=== PATIENT | male | born 1995 | race Caucasian/White ===

== ENCOUNTER 2017-08-22 12:03 | Emergency (ER) | payer BC ==
[~2017-08-22] VITALS: Ht 167.6 cm; Wt 64.9 kg
[2017-08-22] MEDS ORDERED: BACI3.5O8 OS (12:50)
--- NOTE | 2017-08-22 12:50 | PHYS DOC ---
Past History Past Medical History: No Pertinent History Past Surgical History: Appendectomy, Other Smoking: Non-smoker Alcohol Use: None Drug Use: None Adult General Chief Complaint Chief Complaint: LACERATION/AVULSION HPI HPI he is a pleasant 22-year-old male who is moving a aquarium that his medical last 4 or reptiles at his home when he actually pushed it too hard and the plate glass broke. This caused small injuries to both of his hands bilaterally and small laceration to the lateral aspect of his left wrist that will need to be repaired. Patient denies any foreign body sensation, denies any numbness in his hands or weakness. This patient has had a tetanus shot within the last 10 years he denies any intent to hurt himself or anybody else. Patient controlled the bleeding with direct pressure there is no active bleeding or foreign body sensation on inspection of his hands. Review of Systems Review of Systems Constitutional: Denies fever or chills [] Musculoskeletal: Denies back pain or joint pain [] Integument: Denies rash or skin lesions [] Neurologic: Denies headache, focal weakness or sensory changes [] All other systems were reviewed and found to be within normal limits, except as documented in this note. Allergies Allergies Allergies Coded Allergies Type Severity Reaction Last Updated Verified No Known Drug Allergies 08/22/17 No Physical Exam Physical Exam Of the vital signs on the chart within normal limits Constitutional: Well developed, well nourished, no acute distress, non-toxic appearance. [] Cardiovascular:Heart rate regular rhythm, no murmur [] Lungs & Thorax: Bilateral breath sounds clear to auscultation [] Skin: Warm, dry, no erythema, no rash. [] Extremities: he has a small flap-like laceration measuring 1.2 cm and a somewhat elliptical injury to the ER aspect of his left wrist over the distal ulna. Is no joint involvement. Patient's bleeding is well-controlled direct pressure patient has normal sensation to light touch of her perception distal to the wound with no obvious signs of foreign body visualized the floor the wound., Patient is a small avulsion injury on the volar surface of the right forearm measuring less than 0.5 cm it is thin with likely no foreign bodies sensation no active bleeding at this time. She has small linear lacerations measuring less than 3 mm on the dorsum of the hand on the right over the ring finger and the pinky. ROM intact, no edema. [] Neurologic: Alert and oriented X 3, normal motor function, normal sensory function, no focal deficits noted. [] Psychologic: Affect normal, judgement normal, mood normal. [] EKG EKG [] Radiology/Procedures Radiology/Procedures [] Course & Med Decision Making Course & Med Decision Making Pertinent Labs and Imaging studies reviewed. (See chart for details) []he is a pleasant 22-year-old male who presents with multiple injuries to his hands bilaterally after fracturing the glass aquarium 4 a reptile although there is only one wound that really needs repair which will be described in the procedure note all of them been dressed appropriately explored for foreign bodies active bleeding was not noted in any wound. After verbal consent and procedural evaluation and explanation provided to patient I corrected an open wound The only wound that required injury repair was the 1.2 cm laceration over the distal ulna on the left. Patient had 3 mL of 1% lidocaine introduced to the wound edges. To facilitate exploration and cleaning. Using Betadine and a manual scrubbing I cleaned the wound edges and inside the wound visualized the floor which demonstrated no foreign body and no active bleeding. Patient had 6 interrupted sutures placed in rapid succession using a 4-0 Ethilon suture without complications. No active bleeding was noted minimal blood loss was visualized. Patient tolerated the procedure well without complications patient had his wounds dressed with bacitracin ointment and wound care instructions. Impression: Hand lacerations discharge: I've spoken with the patient and/or caregivers. I've explained the patient's condition, diagnosis and treatment plan based on information available to me at this time. I've answered the patient's and/or caregivers questions and addressed any concerns. The patient and/or caregivers have a good understanding the patient's diagnosis, condition and treatment plan as can be expected at this point. Vital signs have been stabilized. The patient's condition is stable for discharge from the emergency department. The patient will pursue further outpatient evaluation with her primary care provider or other designated consulting physician as outlined in the discharge instructions. Patient and/or caregivers are agreeable to this plan of care and follow-up instructions have been explained in detail. The patient and/or caregivers have received these instructions in written format and expressed understanding of these discharge instructions. The patient and her caregivers are aware that if any significant change in condition or worsening of symptoms should prompt him to immediately return to this of the closest emergency department. If an emergent department is not readily available I would encourage him to call 911. Latonya Disclaimer Latonya Disclaimer This electronic medical record was generated, in whole or in part, using a voice recognition dictation system. Departure Departure: Impression: Primary Impression: Hand laceration Additional Impression: Laceration of wrist without complication Disposition: 01 HOME, SELF-CARE Condition: STABLE Referrals: BLAZE HAILE MD (PCP) Patient Instructions: Laceration Care, Adult, Sutured Wound Care Additional Instructions: discharge: I've spoken with the patient and/or caregivers. I've explained the patient's condition, diagnosis and treatment plan based on information available to me at this time. I've answered the patient's and/or caregivers questions and addressed any concerns. The patient and/or caregivers have a good understanding the patient's diagnosis, condition and treatment plan as can be expected at this point. Vital signs have been stabilized. The patient's condition is stable for discharge from the emergency department. The patient will pursue further outpatient evaluation with her primary care provider or other designated consulting physician as outlined in the discharge instructions. Patient and/or caregivers are agreeable to this plan of care and follow-up instructions have been explained in detail. The patient and/or caregivers have received these instructions in written format and expressed understanding of these discharge instructions. The patient and her caregivers are aware that if any significant change in condition or worsening of symptoms should prompt him to immediately return to this of the closest emergency department. If an emergent department is not readily available I would encourage him to call 911. Return in 10-14 days for suture removal to primary care doctor's office Scripts Bacitracin (BACITRACIN) 3.5 Gm Oint...g. 1 KAILEY OS TID, #3.5 GM Prov: RADHA TONG MD 08/22/17 Problem Qualifiers RADHA TONG MD Aug 22, 2017 12:50
[2017-08-22 13:35] VITALS: BP 105/40
== END 2017-08-22 13:35 | disposition home or self-care (01) ==
LOC: ER 12:03
DX: S61.512A Laceration without foreign body of left wrist, initial encounter (principal); S51.811A Laceration without foreign body of right forearm, initial encounter; W25.XXXA Contact with sharp glass, initial encounter; Y93.89 Activity, other specified; Y99.8 Other external cause status; Y92.89 Other specified places as the place of occurrence of the external cause
CPT/HCPCS: 12001; 99283

== ENCOUNTER 2017-09-02 14:52 | Emergency (ER) | payer BC ==
[~2017-09-02] VITALS: Ht 167.6 cm; Wt 65.0 kg
[~2017-09-02 14:52] MED LIST: BACI3.5O8 OS
[2017-09-02 15:15] VITALS: BP 111/54
--- NOTE | 2017-09-02 15:42 | PHYS DOC ---
Past History Past Medical History: No Pertinent History Past Surgical History: Appendectomy, Other Smoking: Non-smoker Alcohol Use: None Drug Use: None Adult General Chief Complaint Chief Complaint: SUTURE/STAPLE REMOVAL [facility] 22-year-old male patient had suture placement in left use an EpiPen night and presented for removal of stitches. Patient did not have any complaint. Patient is not up-to-date with tetanus immunization but refused to have tetanus immunization. Review of Systems Review of Systems Constitutional: Denies fever or chills [] Eyes: Denies change in visual acuity, redness, or eye pain [] HENT: Denies nasal congestion or sore throat [] Respiratory: Denies cough or shortness of breath [] Cardiovascular: No additional information not addressed in HPI [] GI: Denies abdominal pain, nausea, vomiting, bloody stools or diarrhea [] : Denies dysuria or hematuria [] Musculoskeletal: Denies back pain or joint pain [] Integument: Denies rash or skin lesions [] Neurologic: Denies headache, focal weakness or sensory changes [] Endocrine: Denies polyuria or polydipsia [] All other systems were reviewed and found to be within normal limits, except as documented in this note. Current Medications Current Medications Current Medications Medications (Trade) Dose Ordered Sig/Edilma Start Time Stop Time Status Last Admin Dose Admin Diphtheria/ Tetanus/Acell Pertussis (Boostrix) 0.5 ml ONCE ONCE 09/02/17 16:00 09/02/17 16:01 Allergies Allergies Allergies Coded Allergies Type Severity Reaction Last Updated Verified No Known Drug Allergies 08/22/17 No Physical Exam Physical Exam Constitutional: Well developed, well nourished, no acute distress, non-toxic appearance. [] HENT: Normocephalic, atraumatic Eyes: PERRLA, EOMI, conjunctiva normal, no discharge. [] Neck: Normal range of motion, no tenderness, supple, no stridor. [] Cardiovascular:Heart rate regular rhythm, no murmur [] Lungs & Thorax: Bilateral breath sounds clear to auscultation [] Skin: Warm, dry, no erythema, no rash. [] Back: No tenderness, no CVA tenderness. [] Extremities: No tenderness, no cyanosis, no clubbing, ROM intact, no edema, clean left wrist sutured area in ulnar side with [address] that was removed without problem Neurologic: Alert and oriented X 3, normal motor function, normal sensory function, no focal deficits noted. [] Psychologic: Affect normal, judgement normal, mood normal. [] Current Patient Data Vital Signs Vital Signs Date Time Temp Pulse Resp B/P (MAP) Pulse Ox O2 Delivery O2 Flow Rate FiO2 09/02/17 15:15 98.0 74 16 98 Room Air EKG EKG [] Radiology/Procedures Radiology/Procedures [] Course & Med Decision Making Course & Med Decision Making discharge: I've spoken with the patient and/or caregivers. I've explained the patient's condition, diagnosis and treatment plan based on information available to me at this time. I've answered the patient's and/or caregivers questions and addressed any concerns. The patient and/or caregivers have a good understanding the patient's diagnosis, condition and treatment plan as can be expected at this point. Vital signs have been stabilized. The patient's condition is stable for discharge from the emergency department. The patient will pursue further outpatient evaluation with her primary care provider or other designated consulting physician as outlined in the discharge instructions. Patient and/or caregivers are agreeable to this plan of care and follow-up instructions have been explained in detail. The patient and/or caregivers have received these instructions in written format and expressed understanding of these discharge instructions. The patient and her caregivers are aware that if any significant change in condition or worsening of symptoms should prompt him to immediately return to this of the closest emergency department. If an emergent department is not readily available I would encourage him to call 911. Latonya Disclaimer Dragon Disclaimer This electronic medical record was generated, in whole or in part, using a voice recognition dictation system. Departure Departure: Impression: Primary Impression: Encounter for removal of sutures Disposition: HOME, SELF-CARE (At 1541) Condition: STABLE Referrals: BLAZE HAILE MD (PCP) Patient Instructions: Suture Removal Additional Instructions: Keep wound clean and dry SHAUN LOZANO MD Sep 02, 2017 15:42
[2017-09-02] MEDS ORDERED: DIPHTH,PERTUSS(ACELL),TET TOX 0.5 ML DISP.SYRIN. VAX IM ONE (16:00)
== END 2017-09-02 15:44 | disposition home or self-care (01) ==
LOC: ER 14:52
DX: S61.512D Laceration without foreign body of left wrist, subsequent encounter (principal); X58.XXXD Exposure to other specified factors, subsequent encounter
CPT/HCPCS: 99281